=== PATIENT | female | born 1995 | race Caucasian/White ===

== ENCOUNTER 2017-12-13 17:58 | Emergency (ER) | payer BC, OTHER ==
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
== END 2017-12-13 19:11 | disposition home or self-care (01) ==
LOC: ERS 17:58
DX: S60.211A Contusion of right wrist, initial encounter (principal); S50.12XA Contusion of left forearm, initial encounter; V49.9XXA Car occupant (driver) (passenger) injured in unspecified traffic accident, initial encounter